=== PATIENT | female | born 1975 | race Caucasian/White ===

== ENCOUNTER 2022-10-16 09:14 | Day surgery (SDC) | payer BC ==
[~2022-10-16] VITALS: Ht 160 cm; Wt 69.9 kg
[~2022-10-16 09:14] MED LIST: CLINDAMYCIN PHOS 600 MG/ D5W 50 ML PREMIX IV ONE
[2022-10-16 09:48] LABS: HCG,QUAL RESULT NEGATIVE (NEGATIVE)
[2022-10-16] MEDS ORDERED: KETOROLAC TROMETHAMINE 30 MG VIAL IVP PRN (13:30)
[2022-10-16] MEDS ORDERED: ONDANSETRON HCL 4 MG/2 ML VIAL IVP PRN (13:30)
[2022-10-16] MEDS ORDERED: ACETAMINOPHEN 325 MG TABLET PO ONE (13:30)
[2022-10-16] MEDS ORDERED: METOCLOPRAMIDE HCL 10 MG/2 ML VIAL IVP PRN (13:30)
[2022-10-16] MEDS ORDERED: LR 1,000 ML IV.SOLN IV ONE (14:36)
[2022-10-16] MEDS ORDERED: ONDANSETRON HCL 4 MG/2 ML VIAL ONE ×2 (14:36→15:38)
[2022-10-16] MEDS ORDERED: MIDAZOLAM HCL 5 MG/ML VIAL (VERSED) IV ONE (14:36)
[2022-10-16] MEDS ORDERED: BUPIVACAINE /EPINEPHRINE/PF 0.5% 30 ML VIAL INJ ONE (14:36)
[2022-10-16] MEDS ORDERED: NS IRRIG SOLN 1000 ML IR ONE (14:36)
[2022-10-16] MEDS ORDERED: SEVOFLURANE 15 MIN GAS INH ONE (14:36)
[2022-10-16] MEDS ORDERED: SUCCINYLCHOLINE CHLORIDE 20 MG/ML(QUELICIN) ONE (14:36)
[2022-10-16] MEDS ORDERED: PROPOFOL 200MG/ 20ML VIAL (DIPRIVAN) IV ONE (14:36)
[2022-10-16] MEDS ORDERED: ROCURONIUM BROMIDE 10 MG/ML (ZEMURON) ONE (14:36)
[2022-10-16] MEDS ORDERED: NS 1000 ML IV.SOLN IV ONE (14:36)
[2022-10-16] MEDS ORDERED: fentaNYL CITRATE/PF 100 MCG/2 ML AMP ONE (14:36)
[2022-10-16] MEDS: HYDROmorphone 1 MG/ML INJ. CARTRIDGE IVP PRN ×2 (14:40→14:50)
[2022-10-16] MEDS ORDERED: HYDROmorphone 1 MG/ML INJ. CARTRIDGE ONE ×2 (14:40→16:10)
[2022-10-16] MEDS ORDERED: KETOROLAC TROMETHAMINE 30 MG VIAL ONE (15:55)
[2022-10-16] MEDS ORDERED: METOCLOPRAMIDE HCL 10 MG/2 ML VIAL ONE (16:15)
[2022-10-16] MEDS ORDERED: LIP10 PO (16:50)
[2022-10-16] MEDS ORDERED: FENO48TA8 PO (16:50)
[2022-10-16 17:13] VITALS: BP_SYST 123
[2022-10-16 17:17] VITALS: BP_SYST 123
[2022-10-16] MEDS ORDERED: D5LR 1,000 ML IV SCH (18:30)
[2022-10-16] MEDS ORDERED: MORPHINE 4 MG INJ. 4 MG/ML VIAL IVP PRN (18:30)
[2022-10-16 20:00] VITALS: BP_SYST 116
[2022-10-17 00:30] VITALS: BP_SYST 122
[2022-10-17] MEDS ORDERED: NAPROXEN 250 MG TABLET PO PRN (07:15)
[2022-10-17 08:00] VITALS: BP_SYST 142
[2022-10-17 10:24] VITALS: BP_SYST 142
== END 2022-10-17 12:35 | disposition home or self-care (01) ==
LOC: SDS 09:14 → SMU 09:15 → SDS 10-17 12:35
PROVIDERS: ATTEND Surgery
DX: K80.10 Calculus of gallbladder with chronic cholecystitis without obstruction (principal); K42.9 Umbilical hernia without obstruction or gangrene; E78.5 Hyperlipidemia, unspecified; F17.210 Nicotine dependence, cigarettes, uncomplicated; Z88.0 Allergy status to penicillin; Z20.822 Contact with and (suspected) exposure to COVID-19
CPT/HCPCS: 87081; 47563; 84703; 36415; 74300; 88304; 87426; J3490 ×2; J1885; J2765; J2250; J2405; J2704; J0330; J3010; J1170; J2270; Q9967; J7120; J7030; C1727